=== PATIENT | female | born 1980 | race Caucasian/White ===

== ENCOUNTER → 2016-11-04 | Day surgery (SDC) | payer OTHER ==
[~2016-11-04] VITALS: Ht 162.6 cm; Wt 84.8 kg
[~2016-11-04] MED LIST: FLONASE 0.05% N16 GM; IBUPROFEN600 MG PO; LAMICTAL200 MG PO; LEXAPRO10 MG PO; NORVASC 5 MG TAB5 MG PO; PERCOCET 7.5-31 EACH PO; RECLIPSEN 28 D1 EACH PO; STOOL SOFTENER250 MG PO; SYNTHROID50 MCG PO; ZANTAC 150 MG150 MG PO; ZOFRAN4 MG PO; ZONISAMIDE100 MG PO
[2016-11-04 07:14] LABS: BUN/CREATININE RATIO 19 (0-10)
== END | disposition home or self-care (01) ==
LOC: OR 06:07
PROVIDERS: Orthopaedic Surgery
PROC: 0RNJ4ZZ Release Right Shoulder Joint, Percutaneous Endoscopic Approach (ICD-10-PCS; 2016-11-04)
PROC: 0RBJ4ZZ Excision of Right Shoulder Joint, Percutaneous Endoscopic Approach (ICD-10-PCS; principal; 2016-11-04 07:45)
DX: M75.21 Bicipital tendinitis, right shoulder (principal); I10 Essential (primary) hypertension; Z79.899 Other long term (current) drug therapy; Z90.49 Acquired absence of other specified parts of digestive tract
CPT/HCPCS: 80048; 84703; J0171; J0690; J1100; J1885; J2250; J2370; J2405; J2710; J3010; J7120